=== PATIENT | female | born 1955 | race Caucasian/White ===

== ENCOUNTER 2016-07-30 15:23 | Emergency (ER) | payer OTHER ==
[~2016-07-30] VITALS: Ht 172.7 cm; Wt 140.0 kg
[~2016-07-30 15:23] MED LIST: COUMADIN5 MG PO; FLEXERIL10 MG PO; LOVENOX150 MG/1 M SC
[2016-07-30 17:29] LABS: HEMATOCRIT 39.9 % (36.0-46.0); MCHC 34.1 G/DL (30.0-36.0); MCV 82.3 FL (83-99); MEAN PLAT.VOLUME 8.5 uM^3 (9.5-12.4); PLATELET COUNT 182 K/uL (156-360); RBC DIS.WIDTH-CV 14.5 % (11.8-14.6); RBC DIS.WIDTH-SD 42.9 % (39-53); RED BLOOD COUNT 4.85 M/uL (3.80-5.20); WHITE BLOOD COUNT 6.2 K/uL (4.1-10.2)
[2016-07-30 17:40] LABS: CHLORIDE 105 mEq/L (99-109); POTASSIUM 4.1 mEq/L (3.7-5.4); SODIUM 139 mEq/L (136-147)
[2016-07-30 17:42] LABS: GLUCOSE 138 mg/dL (70-99)
[2016-07-30 17:43] LABS: ANION GAP 11 MEQ/L (2-14)
[2016-07-30 17:44] LABS: TOTAL BILIRUBIN 0.4 mg/dL (0.0-1.0)
[2016-07-30 17:46] LABS: ALKALINE PHOSPHATASE 88 IU/L (3-129); GFR ESTIMATE (CALCULATED) > 59 mL/min/
[2016-07-30 17:47] LABS: UREA NITROGEN (BUN) 10 mg/dL (9-23)
[2016-07-30 18:20] LABS: PROTHROMBIN TIME 21.2 (9.2-11.2)
[2016-07-30] MEDS ORDERED: NORCO 5/3251 TABLET PO (18:37)
[2016-07-30] MEDS ORDERED: SKELAXIN800 MG PO (18:37)
[2016-07-30 19:05] VITALS: BP 160/86
== END 2016-07-30 19:07 | disposition home or self-care (01) ==
LOC: EME 15:23
PROVIDERS: Nurse Practitioner Family
DX: S12.120A Other displaced dens fracture, initial encounter for closed fracture (principal); W01.198A Fall on same level from slipping, tripping and stumbling with subsequent striking against other object, initial encounter; Y93.89 Activity, other specified; Z86.718 Personal history of other venous thrombosis and embolism; Z79.01 Long term (current) use of anticoagulants; E11.9 Type 2 diabetes mellitus without complications; F17.200 Nicotine dependence, unspecified, uncomplicated
CPT/HCPCS: 70450; 72125; 80053; 85027; 85610; 85730; 99281; 99284